=== PATIENT | female | born 1995 | race Caucasian/White ===

== ENCOUNTER 2019-05-16 17:09 | Emergency (ER) | payer MEDICAID, OTHER ==
[2019-05-16] MEDS ORDERED: DECADRON 10MG INJ. ONE (17:51)
[2019-05-16] MEDS ORDERED: Rocephin 1000 MG INJ ONE (17:52)
[2019-05-16] MEDS: Augmentin 875-125 Tablet PO ONE (17:54)
[2019-05-16] MEDS: Rocephin 1000 MG INJ IM ONE (17:55)
[2019-05-16] MEDS: DECADRON 10MG INJ. IM ONE (17:55)
--- NOTE | 2019-05-16 17:55 | ERPHSYRPT ---
- History of Present Illness Time Seen by Provider: 05/16/19 17:35 Source: patient Exam Limitations: no limitations Patient Subjective Stated Complaint: Pt states "I think I have strep. My throat is white and it hurts to swallow" Triage Nursing Assessment: Pt presented to the ed alert and oriented X 3, skin pwd Pt ambulates with an upright steady gait, able to speak in clear full sentences. Pt in no apparent respiratory distress. PT throat is red with white patches. Physician History: 24 years old female presented to the ER with chief complaint of sore throat for the last 2 days progressively worsening association with bilateral tonsillar enlargement and white spots. She's also having difficulty swallowing. Pain is morbid intensity, dull aching sharp in nature, aggravated with swallowing. He denies any difficulty eating. She is also having limited fever or chills. Denies any coughing a sick contact. No abdominal pain nausea or vomiting. Timing/Duration: gradual onset Severity: moderate ENT Location: throat Prearrival Treatment: over the counter meds Associated Symptoms: fever, difficulty swallowing Allergies/Adverse Reactions: morphine Allergy (Unknown, Verified 05/16/19 17:24) unknown Home Medications: Oxybutynin [Oxytrol] 1 each TD DAILY 05/16/19 [History] Sulfamethoxazole/Trimethoprim [Bactrim Ds Tablet] 1 each PO DAILY 05/16/19 [ History] Hx Tetanus, Diphtheria Vaccination/Date Given: No Hx Influenza Vaccination/Date Given: No Hx Pneumococcal Vaccination/Date Given: No Immunizations Up to Date: Yes - Review of Systems Constitutional: Fever, Chills, Fatigue Eyes: No Symptoms Ears, Nose, & Throat: Nose Congestion, Throat Swelling Respiratory: No Symptoms Cardiac: No Symptoms Abdominal/Gastrointestinal: No Symptoms Musculoskeletal: No Symptoms Skin: No Symptoms Neurological: No Symptoms Psychological: No Symptoms - Past Medical History Neurological History: No Pertinent History Cardiac History: No Pertinent History Respiratory History: Asthma Endocrine Medical History: Hypothyroidism, Other Musculoskeletal History: Other Other Medical History: High liver levels - Past Surgical History Past Surgical History: Yes Other Surgical History: tubes in ears - Social History Smoking Status: Never smoker Exposure to second hand smoke: Yes Drug Use: none Patient Lives Alone: No - Female History Hx Last Menstrual Period: 04/10/2019 Hx Now: No - Nursing Vital Signs Nursing Vital Signs: Initial Vital Signs Temperature 100.1 F 05/16/19 17:18 Pulse Rate 113 H 05/16/19 17:18 Respiratory Rate 22 05/16/19 17:18 Blood Pressure 176/114 05/16/19 17:18 O2 Sat by Pulse Oximetry 94 L 05/16/19 17:18 Pain Scale Pain Intensity 9 - Physical Exam General Appearance: no apparent distress, alert Eye Exam: bilateral eye: normal inspection, PERRL, EOMI Ear Exam: bilateral ear: auricle normal, canal normal Nasal Exam: normal inspection Throat Exam: moist mucus membranes, pharynx swelling, pharynx tenderness, tonsillar exudate, tonsillar swelling, uvula swelling, No tongue swollen Neck Exam: lymphadenopathy (R), lymphadenopathy (L) Cardiovascular/Respiratory Exam: chest non-tender, normal breath sounds Abdominal Exam: non-tender, soft Neurologic Exam: alert, oriented x 3, cooperative Skin Exam: normal color, warm, dry SpO2 Interpretation: normal SpO2: 94 O2 Delivery: Room Air Ordered Tests: Medication Summary Discontinued Medications Generic Name Dose Route Start Last Admin Trade Name Brannon PRN Reason Stop Dose Admin Amoxicillin/Clavulanate Potassium 875 mg 05/16/19 17:49 05/16/19 17:54 Augmentin 875-125 Tablet PO 05/16/19 17:50 Not Given STAT ONE Ceftriaxone Sodium Confirm 05/16/19 17:52 Rocephin 1000 Mg Inj Administered 05/16/19 17:53 Dose 1,000 mg .ROUTE .STK-MED ONE Ceftriaxone Sodium 1,000 mg 05/16/19 17:54 05/16/19 17:55 Rocephin 1000 Mg Inj IM 05/16/19 17:55 1,000 mg STAT ONE Administration Dexamethasone Sodium Phosphate 10 mg 05/16/19 17:48 05/16/19 17:55 Decadron 10mg Inj. IM 05/16/19 17:49 10 mg STAT ONE Administration Dexamethasone Sodium Phosphate Confirm 05/16/19 17:51 Decadron 10mg Inj. Administered 05/16/19 17:52 Dose 10 mg .ROUTE .STK-MED ONE Lab/Rad Data: Laboratory Results 05/16/19 Range/Units Unknown Group A Strep Antibody POSITIVE (NEGATIVE) - Progress Progress: unchanged, improved Progress Note: 24 years old is evaluated for worsening sore throat and enlarged tonsils. She has bilaterally enlarged tonsils kissing each other with swollen uvula.. I have given her steroid shot in here along with antibiotic. I would continue with Augmentin to go home and shot course of steroid. At this point she does not have any airway compromise. Recommended taking Tylenol/ibuprofen as needed for outpatient followup with primary care for reevaluation. This this time symptoms are worsening needing to cut the etiology seems understanding. Stable for discharge. 05/16/19 18:42 Counseled pt/family regarding: lab results, diagnosis, need for follow-up - Departure Departure Disposition: Home Clinical Impression: Acute streptococcal pharyngitis Condition: Stable Critical Care Time: No Referrals: KENRICK BO [Primary Care Provider] - Follow Up with PCP/3 days Instructions: Strep Throat (DC) Additional Instructions: take Tylenol/ibuprofen as needed. Increase liquid intake. Continue antibiotics. Followup with primary care for reevaluation. Return to ER for difficulty breathing/worsening sore throat/pain/fever etc. Prescriptions: Amox Tr/Potass Clav. 875 mg [Augmentin 875-125 Tablet] 875 mg PO BID 10 Days #20 tablet Prednisone 10 mg [Deltasone 10 mg] 60 mg PO DAILY #30 tablet
[2019-05-16 18:52] VITALS: BP 142/104; PULSE 99; O2SAT 98
== END 2019-05-16 19:00 | disposition home or self-care (01) ==
LOC: ED 17:09
DX: J02.0 Streptococcal pharyngitis (principal)
CPT/HCPCS: 87651; 96372; 99284; J0696; J1100

== ENCOUNTER 2021-07-16 23:04 | Emergency (ER) | payer OTHER ==
[2021-07-17] MEDS ORDERED: Zofran 4 MG/2 ML VIAL IV ONE (00:17)
[2021-07-17] MEDS ORDERED: Sodium Chloride 0.9% 1000 ML 1,000 ML IV STA (00:17)
[2021-07-17] MEDS ORDERED: Hydromorphone 1 mg/ml Injection IV ONE (00:17)
--- NOTE | 2021-07-17 00:21 | ERPHSYRPT ---
- History of Present Illness Time Seen by Provider: 07/16/21 23:08 Historian: patient Exam Limitations: no limitations Physician History: 26 years old female presented in the ER with chief complaint of left flank pain since yesterday afternoon, moderate to severe intensity, sharp nature, continuous, radiating to left groin, aggravated with palpation and movements and denies any associated urinary symptoms. Has nausea but no vomiting. Reports having similar symptoms in the past with UTI. No history of kidney stones. Timing/Duration: yesterday, constant, gradual onset, worse Activities at Onset: rest Quality: sharpness Abdominal Pain Onset Location: flank Pain Radiation: groin Severity of Pain-Max: severe Severity of Pain-Current: moderate Modifying Factors: Worsens With: movement, palpation, urinating Associated Symptoms: nausea Previous symptoms: same symptoms as today Allergies/Adverse Reactions: morphine Allergy (Unknown, Verified 07/17/21 01:02) unknown Home Medications: Atorvastatin Calcium [Lipitor] 10 mg PO DAILY 07/17/21 [History] Bupropion HCl [Wellbutrin Xl] 150 mg PO BID 07/17/21 [History] Lisinopril 10 mg [Zestril 10 MG] 10 mg PO DAILY 07/17/21 [History] Norgestimate-Ethinyl Estradiol [Sprintec 28 Day Tablet] 1 tab PO DAILY 07/17/21 [History] Hx Tetanus, Diphtheria Vaccination/Date Given: No Hx Influenza Vaccination/Date Given: No Hx Pneumococcal Vaccination/Date Given: No - Review of Systems Constitutional: No Symptoms Eyes: No Symptoms Ears, Nose, & Throat: No Symptoms Respiratory: No Symptoms Cardiac: No Symptoms Abdominal/Gastrointestinal: Abdominal Pain, Nausea Genitourinary Symptoms: No Symptoms Musculoskeletal: No Symptoms Skin: No Symptoms Neurological: No Symptoms Psychological: No Symptoms Endocrine: No Symptoms Hematologic/Lymphatic: No Symptoms Immunological/Allergic: No Symptoms - Past Medical History Neurological History: No Pertinent History Cardiac History: No Pertinent History Respiratory History: Asthma Endocrine Medical History: Hypothyroidism, Other Musculoskeletal History: Other Other Medical History: High liver levels - Past Surgical History Past Surgical History: Yes Other Surgical History: tubes in ears - Social History Smoking Status: Never smoker Exposure to second hand smoke: Yes Drug Use: none Patient Lives Alone: No - Nursing Vital Signs Nursing Vital Signs: Initial Vital Signs Temperature 98 F 07/16/21 23:04 Pulse Rate 84 12/08/21 23:04 Respiratory Rate 20 07/16/21 23:04 Blood Pressure 170/127 07/16/21 23:04 O2 Sat by Pulse Oximetry 96 07/16/21 23:04 Pain Scale Pain Intensity 0 - Physical Exam General Appearance: no apparent distress, alert Eye Exam: PERRL/EOMI, eyes nml inspection Ears, Nose, Throat Exam: normal ENT inspection, pharynx normal Neck Exam: normal inspection, non-tender, supple, full range of motion Respiratory Exam: normal breath sounds, lungs clear Cardiovascular Exam: regular rate/rhythm, normal heart sounds Gastrointestinal/Abdomen Exam: soft, normal bowel sounds, tenderness Back Exam: normal inspection (Left flank/left lower quadrant), normal range of motion, CVA tenderness (Left) Extremity Exam: normal inspection, normal range of motion Neurologic Exam: alert, oriented x 3, cooperative Skin Exam: normal color SpO2 Interpretation: normal SpO2: 96 O2 Delivery: Room Air Ordered Tests: Medication Summary Discontinued Medications Generic Name Dose Route Start Last Admin Trade Name Brannon PRN Reason Stop Dose Admin Ciprofloxacin 500 mg 07/17/21 10:00 07/17/21 02:46 Ciprofloxacin 500 Mg Tablet PO 08/16/21 09:59 500 mg BID [place] Administration Ciprofloxacin Confirm 07/17/21 02:44 Ciprofloxacin 500 Mg Tablet Administered 07/17/21 02:45 Dose 500 mg .ROUTE .STK-MED ONE Hydromorphone HCl 1 mg 07/17/21 00:17 07/17/21 01:17 Hydromorphone 1 Mg/1ml Inj 1 Mg/Ml Syringe IV 07/17/21 00:18 1 mg STAT ONE Administration Hydromorphone HCl Confirm 07/17/21 01:13 Hydromorphone 1 Mg/1ml Inj 1 Mg/Ml Syringe Administered 07/17/21 01:14 Dose 1 mg .ROUTE .STK-MED ONE Sodium Chloride 1,000 mls @ 999 mls/hr 07/17/21 00:17 07/17/21 01:11 Sodium Chloride 0.9% 1000 Ml IV 07/17/21 01:17 Not Given .Q1H1M STA Ondansetron HCl 4 mg 07/17/21 00:17 07/17/21 01:11 Ondansetron Hcl 4 Mg/2 Ml Vial IV 07/17/21 00:18 Not Given STAT ONE Tamsulosin HCl 0.4 mg 07/17/21 10:00 07/17/21 02:46 Tamsulosin Hcl 0.4 Mg Cap PO 08/16/21 09:59 0.4 mg DAILY [place] Administration Tamsulosin HCl Confirm 07/17/21 02:44 Tamsulosin Hcl 0.4 Mg Cap Administered 07/17/21 02:45 Dose 0.4 mg .ROUTE .STK-MED ONE Lab/Rad Data: Laboratory Result Diagrams 07/17/21 01:00 07/17/21 01:00 Laboratory Results 07/17/21 07/17/21 07/17/21 Range/Units 01:00 01:00 00:26 WBC 12.5 H (4.0-10.5) K/mm3 RBC 4.67 (4.1-5.4) M/mm3 Hgb 11.5 L (12.0-16.0) gm/dl Hct 37.3 (35-47) % MCV 79.9 (78-100) fl MCH 24.6 L (26-32) pg MCHC 30.8 L (32-36) g/dl RDW 16.6 H (11.5-14.0) % Plt Count 346 (150-450) K/mm3 MPV 10.6 (7.5-11.0) fl Gran % 74.9 H (36.0-66.0) % Eos # (Auto) 0.10 (0-0.5) Absolute Lymphs (auto) 2.26 (1.0-4.6) Absolute Monos (auto) 0.75 (0.0-1.3) Lymphocytes % 18.1 L (24.0-44.0) % Monocytes % 6.0 (0.0-12.0) % Eosinophils % 0.8 (0.00-5.0) % Basophils % 0.2 (0.0-0.4) % Absolute Granulocytes 9.34 H (1.4-6.9) Basophils # 0.02 (0-0.4) Sodium 139 (137-145) mmol/L Potassium 3.8 (3.5-5.1) mmol/L Chloride 106 (98-107) mmol/L Carbon Dioxide 24 (22-30) mmol/L Anion Gap 12.3 (5-15) MEQ/L BUN 24 H (7-17) mg/dL Creatinine 1.07 H (0.52-1.04) mg/dL Estimated GFR > 60.0 ML/MIN Glucose 99 (74-106) mg/dL Calcium 9.7 (8.4-10.2) mg/dL Total Bilirubin 0.30 (0.2-1.3) mg/dL AST 16 (14-36) U/L ALT 14 (0-35) U/L Alkaline Phosphatase 74 (38-126) U/L Serum Total Protein 8.0 (6.3-8.2) g/dL Albumin 4.6 (3.5-5.0) g/dL Lipase 95 (23-300) U/L Urine Color (YELLOW) Urine Appearance (CLEAR) Urine pH (5-6) Ur Specific [place] (1.005-1.025) Urine Protein (Negative) Urine Ketones (NEGATIVE) Urine Blood (0-5) Jay/ul Urine Nitrite (NEGATIVE) Urine Bilirubin (NEGATIVE) Urine Urobilinogen (0-1) mg/dL Ur Leukocyte Esterase (NEGATIVE) Urine WBC (Auto) (0-5) /HPF Urine RBC (Auto) (0-2) /HPF U Epithel Cells (Auto) (FEW) /HPF Urine Bacteria (Auto) (NEGATIVE) /HPF Urine Culture Reflexed (NO) Urine Glucose (NEGATIVE) mg/dL Urine HCG, Qual NEGATIVE (Negative) 07/17/21 Range/Units 00:26 WBC (4.0-10.5) K/mm3 RBC (4.1-5.4) M/mm3 Hgb (12.0-16.0) gm/dl Hct (35-47) % MCV (78-100) fl MCH (26-32) pg MCHC (32-36) g/dl RDW (11.5-14.0) % Plt Count (150-450) K/mm3 MPV (7.5-11.0) fl Gran % (36.0-66.0) % Eos # (Auto) (0-0.5) Absolute Lymphs (auto) (1.0-4.6) Absolute Monos (auto) (0.0-1.3) Lymphocytes % (24.0-44.0) % Monocytes % (0.0-12.0) % Eosinophils % (0.00-5.0) % Basophils % (0.0-0.4) % Absolute Granulocytes (1.4-6.9) Basophils # (0-0.4) Sodium (137-145) mmol/L Potassium (3.5-5.1) mmol/L Chloride (98-107) mmol/L Carbon Dioxide (22-30) mmol/L Anion Gap (5-15) MEQ/L BUN (7-17) mg/dL Creatinine (0.52-1.04) mg/dL Estimated GFR ML/MIN Glucose (74-106) mg/dL Calcium (8.4-10.2) mg/dL Total Bilirubin (0.2-1.3) mg/dL AST (14-36) U/L ALT (0-35) U/L Alkaline Phosphatase (38-126) U/L Serum Total Protein (6.3-8.2) g/dL Albumin (3.5-5.0) g/dL Lipase (23-300) U/L Urine Color STRAW (YELLOW) Urine Appearance SLIGHTLY CLOUDY (CLEAR) Urine pH 5.0 (5-6) Ur Specific [place] 1.013 (1.005-1.025) Urine Protein 100 (Negative) Urine Ketones NEGATIVE (NEGATIVE) Urine Blood SMALL (0-5) Jay/ul Urine Nitrite NEGATIVE (NEGATIVE) Urine Bilirubin NEGATIVE (NEGATIVE) Urine Urobilinogen NEGATIVE (0-1) mg/dL Ur Leukocyte Esterase NEGATIVE (NEGATIVE) Urine WBC (Auto) 0-2 (0-5) /HPF Urine RBC (Auto) 6-10 (0-2) /HPF U Epithel Cells (Auto) NONE (FEW) /HPF Urine Bacteria (Auto) NONE (NEGATIVE) /HPF Urine Culture Reflexed YES (NO) Urine Glucose NEGATIVE (NEGATIVE) mg/dL Urine HCG, Qual (Negative) - Progress Progress: improved Progress Note: She is given symptomatic treatment for pain along with fluid bolus, feeling much improved on reevaluation. CT showed left-sided stone without obvious obstruction and mild hydroureteronephrosis per preliminary report. I have given her Flomax and prophylactic antibiotics, outpatient urology follow-up recommended. Counseled pt/family regarding: lab results, diagnosis, need for follow-up, rad results - Departure Departure Disposition: Home Clinical Impression: Ureterolithiasis Condition: Stable Critical Care Time: No Referrals: KENRICK BO NP [Primary Care Provider] - Follow up/PCP as directed (1-2 days for reevaluation) DEON PIEDRA [COURTESY STAFF] - Follow up/PCP as directed (Call in the morning for appointment) Instructions: Kidney Stones (DC) Additional Instructions: Take Tylenol/ibuprofen as needed for pain. Follow-up with urology for reevaluation. Return to ER for worsening pain or if develop fever chills intractable vomiting etc. Prescriptions: Hydrocodone/Acetaminophen [Hydrocodone-Acetamin 7.5-325] 1 each PO Q6HPRN PRN 3 Days #12 tablet MDD 4 PRN Reason: Pain Ciprofloxacin [Cipro 500 MG] 500 mg PO BID #14 tablet Tamsulosin HCl 0.4 mg [Flomax 0.4 MG] 0.4 mg PO DAILY #30 cap
[2021-07-17] MEDS ORDERED: Hydromorphone 1 mg/ml Injection ONE (01:13)
[2021-07-17 01:19] LABS: Absolute Neutrophil Ct (ANC) 9.34 (1.4-6.9); BASOPHIL % 0.2 % (0.0-0.4); Basophil (Absolute #) 0.02 (0-0.4); Eosinophil % 0.8 % (0.00-5.0); Hematocrit 37.3 % (35-47); Hemoglobin 11.5 gm/dl (12.0-16.0); Lymphocyte (Absolute #) 2.26 (1.0-4.6); Lymphocytes % 18.1 % (24.0-44.0); Mean Cell Volume 79.9 fl (78-100); Mean Corpuscular Hemoglobin 24.6 pg (26-32); Mean Corpuscular Hgb Concent. 30.8 g/dl (32-36); Mean Platelet Volume 10.6 fl (7.5-11.0); Monocyte (Absolute #) 0.75 (0.0-1.3); Neutrophil % 74.9 % (36.0-66.0); Platelet Count 346 K/mm3 (150-450); Red Blood Count 4.67 M/mm3 (4.1-5.4); Red Cell Distribution Width 16.6 % (11.5-14.0); White Blood Count 12.5 K/mm3 (4.0-10.5)
[2021-07-17 01:23] LABS: Appearance SLIGHTLY CLOUDY (CLEAR); Bilirubin NEGATIVE (NEGATIVE); Blood SMALL Ery/ul (0-5); Glucose NEGATIVE (NEGATIVE); Ketones NEGATIVE (NEGATIVE); Leukocyte Esterase NEGATIVE (NEGATIVE); Nitrite NEGATIVE (NEGATIVE); Protein,Urine Dip 100 (Negative); Specific Gravity 1.013 (1.005-1.025); Urobilinogen NEGATIVE mg/dL (0-1); WBC 0-2 /HPF (0-5)
[2021-07-17 01:29] LABS: ALBUMIN 4.6 g/dL (3.5-5.0); ALKALINE PHOSPHATASE 74 U/L (38-126); ANION GAP 12.3 MEQ/L (5-15); BLOOD UREA NITROGEN 24 mg/dL (7-17); CHLORIDE 106 mmol/L (98-107); Calcium 9.7 mg/dL (8.4-10.2); Carbon Dioxide 24 mmol/L (22-30); Creatinine 1 1.07 mg/dL (0.52-1.04); EST GLOMERULAR FILTRATION RATE > 60.0 ML/MIN; Glucose 99 mg/dL (74-106); LIPASE 95 U/L (23-300); Potassium 3.8 mmol/L (3.5-5.1); SGOT/AST 16 U/L (14-36); SGPT/ALT 14 U/L (0-35); SODIUM 139 mmol/L (137-145)
[2021-07-17] MEDS ORDERED: Cipro 500 MG ONE (02:44)
[2021-07-17] MEDS ORDERED: Flomax 0.4 MG ONE (02:44)
[2021-07-17 03:11] VITALS: BP 134/78; PULSE 72
--- NOTE | 2021-07-17 09:53 | XRAY ---
Indication: Left flank pain and nausea. Multiple contiguous axial images obtained through the abdomen and pelvis without contrast using renal stone protocol. Comparison: January 14, 2015. Lung bases are clear of infiltrate and effusion. Heart is not enlarged. Proximal left ureter demonstrates new 5-6 mm calculus, approximately L2-L3 interspace level. Moderate left hydronephrosis and mild left renal edema consistent with high-grade obstructive uropathy. No free fluid/air. Stomach is again distended with food/fluid. Noncontrasted stomach and bowel loops nonobstructed with normal appendix. Remaining liver, gallbladder, pancreas, spleen, adrenal glands, kidneys, ureters, bladder, uterus, and aorta are unremarkable for noncontrast exam. Osseous structures intact. Impression: 1. New 5-6 mm proximal left ureteral calculus producing high-grade obstruction. 2. Remaining CT abdomen/pelvis without contrast exam is negative. Comment: Preliminary interpretation made by C. No critical discrepancy.
[2021-07-17] MEDS ORDERED: Cipro 500 MG PO SCH (10:00)
[2021-07-17] MEDS ORDERED: Flomax 0.4 MG PO SCH (10:00)
[2021-07-19 20:44] VITALS: O2SAT 96
== END 2021-07-17 03:11 | disposition home or self-care (01) ==
LOC: ED 23:04
DX: N20.1 Calculus of ureter (principal); R11.0 Nausea; Z79.891 Long term (current) use of opiate analgesic
CPT/HCPCS: 36415; 74176; 80053; 81001; 83690; 84703; 85025; 87086; 99284; J1170; A9270-GY

== ENCOUNTER 2023-01-25 11:19 | Emergency (ER) | payer OTHER ==
[2023-01-25] MEDS ORDERED: Sodium Chloride 0.9% 1000 ML 1,000 ML IV STA (11:34)
[2023-01-25] MEDS ORDERED: Sodium Chloride 0.9% 1000 ML 1,000 ML ONE (11:42)
[2023-01-25 11:45] LABS: VBG BASE EXCESS 0.2 (-2.0-2.0); VBG CARBOXYHEMOGLOBIN 3.7 % T HGB (0.0-6.9); VBG HCO3- 20.2 meq/L (22-28); VBG HEMOGLOBIN 14.7; VBG O2 SATURATION 70.9 (95-100); VBG POTASSIUM 3.6 (3.5-5.1)
[2023-01-25 11:46] LABS: VBG pH 7.57 (7.32-7.42)
--- NOTE | 2023-01-25 11:53 | XRAY ---
Indication: Short of breath. Comparison: August 28, 2016 Portable chest continues to demonstrate normal heart, lungs, and bony thorax.
[2023-01-25 11:57] LABS: Absolute Neutrophil Ct (ANC) 4.88 x10^3/uL (1.4-6.9); BASOPHIL % 0.4 % (0.0-0.4); Basophil (Absolute #) 0.03 x10^3/uL (0-0.4); Eosinophil % 0.4 % (0.00-5.0); Eosinophil (Absolute #) 0.03 x10^3/uL (0-0.5); Hematocrit 42.1 % (35-47); Hemoglobin 13.8 g/dL (12.0-16.0); IMMATURE GRAN # 0.02 x10^3u/L (0.00-0.03); IMMATURE GRAN % 0.3 % (0.00-0.4); Lymphocyte (Absolute #) 2.12 x10^3/uL (1.0-4.6); Lymphocytes % 28.3 % (24.0-44.0); Mean Cell Volume 81.4 fL (78-100); Mean Corpuscular Hemoglobin 26.7 pg (26-32); Mean Corpuscular Hgb Concent. 32.8 g/dL (32-36); Mean Platelet Volume 11.8 fL (7.5-11.0); Monocytes % 5.3 % (0.0-12.0); Neutrophil % 65.3 % (36.0-66.0); Platelet Count 255 x10^3/uL (150-450); Red Blood Count 5.17 x10^6/uL (4.1-5.4); Red Cell Distribution Width 14.3 % (11.5-14.0); White Blood Count 7.5 x10^3/uL (4.0-10.5)
[2023-01-25] MEDS ORDERED: Ativan 2 MG/1 ML VIAL IV ONE (11:59)
[2023-01-25] MEDS ORDERED: Ativan 2 MG/1 ML VIAL ONE (12:01)
[2023-01-25 12:20] LABS: ALBUMIN 4.7 g/dL (3.5-5.0); ALKALINE PHOSPHATASE 58 U/L (38-126); ANION GAP 17.4 MEQ/L (5-15); BLOOD UREA NITROGEN 15 mg/dL (7-17); CHLORIDE 108 mmol/L (98-107); Carbon Dioxide 19 mmol/L (22-30); Creatinine 1 0.85 mg/dL (0.52-1.04); EST GLOMERULAR FILTRATION RATE > 60.0 ML/MIN; Glucose 93 mg/dL (74-106); MAGNESIUM 2.2 mg/dL (1.6-2.3); NT PRO BNPII 25.5 pg/mL (<300); Potassium 3.5 mmol/L (3.5-5.1); SGOT/AST 27 U/L (14-36); SGPT/ALT 16 U/L (0-35); SODIUM 141 mmol/L (137-145); Total Protein 8.2 g/dL (6.3-8.2)
[2023-01-25 12:31] VITALS: O2SAT 97
[2023-01-25 12:33] LABS: INFLUENZA A NEGATIVE (NEGATIVE); INFLUENZA B NEGATIVE (NEGATIVE); RESPIRATORY SYNCTIAL VIRUS NEGATIVE (NEGATIVE); SARS-CoV-2 Xpert Express NEGATIVE (NEGATIVE)
--- NOTE | 2023-01-25 12:42 | ERPHSYRPT ---
- History of Present Illness Time Seen by Provider: 01/25/23 11:35 Source: patient, family Exam Limitations: no limitations Patient Subjective Stated Complaint: C/O SOB that started on and has become progressively worse. Denies any pain at this time but states she has been having some intermittent chest pain since Wednesday. Triage Nursing Assessment: Patient ambulated back to ER. She is SOB; labored. Diaphoretic. Skin tone normal for patient. She is alert and oriented. JEAN BAPTISTE WNL. No cough. Lungs clear. Physician History: Patient is a 27-year-old white female who presents with a complaint of shortness of breath. Is been going on for several days but is getting much worse. She had asthma as a child but no reported illnesses respiratory crow as an adult. She does have problems with anxiety. She has had no cough no fever chills sweats she has some numbness in the left hand and her entire chest seems to hurt. Timing/Duration: day(s) (5) Activities at Onset: none Severity of Dyspnea-Max: moderate Severity of Dyspnea-Current: none Possible Cause: no prior episodes Modifying Factors: Improves With: nothing Associated Symptoms: anxiety, chest pain/discomfort, tingling hands Allergies/Adverse Reactions: morphine Allergy (Unknown, Verified 01/25/23 11:21) unknown Home Medications: Lisinopril 10 mg [Zestril 10 MG] 20 mg PO DAILY 07/17/21 [History] Buspirone HCl 5 mg [Buspar 5 mg] 10 mg PO BID 01/25/23 [History] Phentermine HCl 1 tab PO DAILY 01/25/23 [History] Hx Tetanus, Diphtheria Vaccination/Date Given: Yes Hx Influenza Vaccination/Date Given: No Hx Pneumococcal Vaccination/Date Given: No Immunizations Up to Date: Yes Travel Risk - International Travel Have you traveled outside of the country in past 3 weeks: No - Coronavirus Screening Are you exhibiting any of the following symptoms?: Yes Symptoms: Shortness of Breath Close contact with a COVID-19 positive Pt in past 14-21 Days: No - Vaccine Status Have you recieved a Covid-19 vaccination: Yes 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[employer] - Vaccination Dates Date of 2cond Vaccination (if applicable): Didn't get - Review of Systems Constitutional: No Fever, No Chills Eyes: No Symptoms Ears, Nose, & Throat: No Symptoms Respiratory: Dyspnea, No Cough Cardiac: No Chest Pain, No Edema, No Syncope Abdominal/Gastrointestinal: No Abdominal Pain, No Nausea, No Vomiting, No Diarrhea Genitourinary Symptoms: No Dysuria Musculoskeletal: No Back Pain, No Neck Pain Skin: No Rash Neurological: No Dizziness, No Focal Weakness, No Sensory Changes Psychological: No Symptoms Endocrine: No Symptoms All Other Systems: Reviewed and Negative - Past Medical History Pertinent Past Medical History: Yes Neurological History: No Pertinent History ENT History: Other Cardiac History: No Pertinent History Respiratory History: Asthma Endocrine Medical History: Hypothyroidism, Other Musculoskeletal History: Other GI Medical History: Other History: No Pertinent History Psycho-Social History: Anxiety, Depression Female Reproductive Disorders: No Pertinent History Other Medical History: High liver levels - Past Surgical History Past Surgical History: Yes Neuro Surgical History: No Pertinent History Cardiac: No Pertinent History Respiratory: No Pertinent History Gastrointestinal: No Pertinent History Genitourinary: No Pertinent History Musculoskeletal: No Pertinent History Female Surgical History: No Pertinent History Other Surgical History: tubes in ears - Social History Smoking Status: Never smoker Exposure to second hand smoke: Yes Drug Use: none Patient Lives Alone: No - Female History Hx Last Menstrual Period: 12/23/22 Hx Now: No - Nursing Vital Signs Nursing Vital Signs: Initial Vital Signs Temperature 97.7 F 01/25/23 11:24 Pulse Rate 92 H 01/25/23 11:24 Respiratory Rate 22 01/25/23 11:24 Blood Pressure 157/111 01/25/23 11:24 O2 Sat by Pulse Oximetry 100 01/25/23 11:24 Pain Scale Pain Intensity 0 - Physical Exam General Appearance: mild distress Eye Exam: PERRL/EOMI Ears, Nose, Throat Exam: hearing grossly normal, normal ENT inspection Neck Exam: normal inspection, supple Respiratory Exam: normal breath sounds, lungs clear, other (Hyperventilation) Cardiovascular/Chest Exam: normal heart sounds, regular rate/rhythm Abdominal/Gastrointestinal Exam: soft, No tenderness, No distention, No mass Extremity Exam: non-tender, normal range of motion, normal inspection, no calf tenderness, no pedal edema Neurologic Exam: alert, oriented x 3, cooperative, veterinary anatomist II-XII nml as tested, sensation nml, No motor deficits Skin Exam: normal color, warm, No dry SpO2 Interpretation: normal SpO2: 97 O2 Delivery: Room Air - Course Nursing assessment & vital signs reviewed: Yes EKG Interpreted by Me: RATE (90), Sinus Rhythm, NORMAL AXIS, NORMAL INTERVALS, NORMAL QRS, NORMAL ST-T - Radiology Exams Chest X-ray Interpretation: Reviewed by me Ordered Tests: Active Orders 24 hr Category Date Time Status EKG-ER Only STAT Care 01/25/23 11:34 Active CHEST 1 VIEW (PORTABLE) Stat Exams 01/25/23 11:35 Completed CBC W DIFF Stat Lab 01/25/23 11:56 Completed CMP Stat Lab 01/25/23 11:56 Completed D-DIMER QUANTITATIVE Stat Lab 01/25/23 11:56 Completed Lactic Acid Stat Lab 01/25/23 11:34 Completed MAGNESIUM Stat Lab 01/25/23 11:56 Completed NT PRO BNPII Stat Lab 01/25/23 11:56 Completed TROPONIN Q4H Lab 01/25/23 11:56 Completed TROPONIN Q4H Lab 01/25/23 15:45 Ordered TROPONIN Q4H Lab 01/25/23 19:45 Ordered UA W/RFX UR CULTURE Stat Lab 01/25/23 11:38 Ordered Urine Triage Profile Stat Lab 01/25/23 Ordered VENOUS BLOOD GAS Stat Lab 01/25/23 11:35 Completed Medication Summary Discontinued Medications Generic Name Dose Route Start Last Admin Trade Name Kerwinq PRN Reason Stop Dose Admin Sodium Chloride 1,000 mls @ 999 mls/hr 01/25/23 11:34 01/25/23 11:43 Sodium Chloride 0.9% 1000 Ml IV 01/25/23 12:34 999 mls/hr .Q1H1M STA Administration Sodium Chloride Confirm 01/25/23 11:42 Sodium Chloride 0.9% 1000 Ml Administered 01/25/23 11:43 Dose 1,000 mls @ ud .ROUTE .STK-MED ONE Lorazepam 1 mg 01/25/23 11:59 01/25/23 12:02 Lorazepam 2 Mg/1 Ml 2 Mg Vial IV 01/25/23 12:00 1 mg STAT ONE Administration Lorazepam Confirm 01/25/23 12:01 Lorazepam 2 Mg/1 Ml 2 Mg Vial Administered 01/25/23 12:02 Dose 2 mg .ROUTE .STK-MED ONE Lab/Rad Data: Laboratory Result Diagrams 01/25/23 11:56 01/25/23 11:56 Laboratory Results 01/25/23 01/25/23 01/25/23 Range/Units Unknown 11:56 11:56 WBC (4.0-10.5) x10^3/uL RBC (4.1-5.4) x10^6/uL Hgb (12.0-16.0) g/dL Hct (35-47) % MCV (78-100) fL MCH (26-32) pg MCHC (32-36) g/dL RDW (11.5-14.0) % Plt Count (150-450) x10^3/uL MPV (7.5-11.0) fL Gran % (36.0-66.0) % Immature Gran % (Auto) (0.00-0.4) % Nucleat RBC Rel Count (0.00-0.1) % Eos # (Auto) (0-0.5) x10^3/uL Immature Gran # (Auto) (0.00-0.03) x10^3u/L Absolute Lymphs (auto) (1.0-4.6) x10^3/uL Absolute Monos (auto) (0.0-1.3) x10^3/uL Absolute Nucleated RBC (0.00-0.01) x10^3u/L Lymphocytes % (24.0-44.0) % Monocytes % (0.0-12.0) % Eosinophils % (0.00-5.0) % Basophils % (0.0-0.4) % Absolute Granulocytes (1.4-6.9) x10^3/uL Basophils # (0-0.4) x10^3/uL D-Dimer 0.44 (0.0-0.50) mg/L pO2/FiO2 Ratio % VBG pH (7.32-7.42) VBG pCO2 at Pat Temp (42-55) mm/Hg VBG pO2 at Pat Temp (25-40) mm/Hg VBG HCO3 (22-28) meq/L VBG O2 Sat (Ian) (95-100) VBG Base Excess (-2.0-2.0) VBG Hemoglobin VBG Carboxyhemoglobin (0.0-6.9) % T HGB POC Potassium (3.5-5.1) Sodium (137-145) mmol/L Potassium (3.5-5.1) mmol/L Chloride (98-107) mmol/L Carbon Dioxide (22-30) mmol/L Anion Gap (5-15) MEQ/L BUN (7-17) mg/dL Creatinine (0.52-1.04) mg/dL Estimated GFR ML/MIN Glucose (74-106) mg/dL Lactic Acid (0.4-2.0) Calcium (8.4-10.2) mg/dL Magnesium (1.6-2.3) mg/dL Total Bilirubin (0.2-1.3) mg/dL AST (14-36) U/L ALT (0-35) U/L Alkaline Phosphatase (38-126) U/L Troponin I < 0.012 (0.000-0.034) ng/mL NT-Pro-B Natriuret Pep (<300) pg/mL Serum Total Protein (6.3-8.2) g/dL Albumin (3.5-5.0) g/dL Influenza Type A Ag NEGATIVE (NEGATIVE) Influenza Type B Ag NEGATIVE (NEGATIVE) RSV (PCR) NEGATIVE (NEGATIVE) SARS-CoV-2 (PCR) NEGATIVE (NEGATIVE) 01/25/23 01/25/23 01/25/23 Range/Units 11:56 11:56 11:35 WBC 7.5 (4.0-10.5) x10^3/uL RBC 5.17 (4.1-5.4) x10^6/uL Hgb 13.8 (12.0-16.0) g/dL Hct 42.1 (35-47) % MCV 81.4 (78-100) fL MCH 26.7 (26-32) pg MCHC 32.8 (32-36) g/dL RDW 14.3 H (11.5-14.0) % Plt Count 255 (150-450) x10^3/uL MPV 11.8 H (7.5-11.0) fL Gran % 65.3 (36.0-66.0) % Immature Gran % (Auto) 0.3 (0.00-0.4) % Nucleat RBC Rel Count 0.0 (0.00-0.1) % Eos # (Auto) 0.03 (0-0.5) x10^3/uL Immature Gran # (Auto) 0.02 (0.00-0.03) x10^3u/L Absolute Lymphs (auto) 2.12 (1.0-4.6) x10^3/uL Absolute Monos (auto) 0.40 (0.0-1.3) x10^3/uL Absolute Nucleated RBC 0.00 (0.00-0.01) x10^3u/L Lymphocytes % 28.3 (24.0-44.0) % Monocytes % 5.3 (0.0-12.0) % Eosinophils % 0.4 (0.00-5.0) % Basophils % 0.4 (0.0-0.4) % Absolute Granulocytes 4.88 (1.4-6.9) x10^3/uL Basophils # 0.03 (0-0.4) x10^3/uL D-Dimer (0.0-0.50) mg/L pO2/FiO2 Ratio 21.0 % VBG pH 7.57 H* (7.32-7.42) VBG pCO2 at Pat Temp 22 L* (42-55) mm/Hg VBG pO2 at Pat Temp 34 (25-40) mm/Hg VBG HCO3 20.2 L (22-28) meq/L VBG O2 Sat (Ian) 70.9 L (95-100) VBG Base Excess 0.2 (-2.0-2.0) VBG Hemoglobin 14.7 VBG Carboxyhemoglobin 3.7 (0.0-6.9) % T HGB POC Potassium 3.6 (3.5-5.1) Sodium 141 (137-145) mmol/L Potassium 3.5 (3.5-5.1) mmol/L Chloride 108 H (98-107) mmol/L Carbon Dioxide 19 L (22-30) mmol/L Anion Gap 17.4 H (5-15) MEQ/L BUN 15 (7-17) mg/dL Creatinine 0.85 (0.52-1.04) mg/dL Estimated GFR > 60.0 ML/MIN Glucose 93 (74-106) mg/dL Lactic Acid (0.4-2.0) Calcium 10.0 (8.4-10.2) mg/dL Magnesium 2.2 (1.6-2.3) mg/dL Total Bilirubin 0.90 (0.2-1.3) mg/dL AST 27 (14-36) U/L ALT 16 (0-35) U/L Alkaline Phosphatase 58 (38-126) U/L Troponin I (0.000-0.034) ng/mL NT-Pro-B Natriuret Pep 25.5 (<300) pg/mL Serum Total Protein 8.2 (6.3-8.2) g/dL Albumin 4.7 (3.5-5.0) g/dL Influenza Type A Ag (NEGATIVE) Influenza Type B Ag (NEGATIVE) RSV (PCR) (NEGATIVE) SARS-CoV-2 (PCR) (NEGATIVE) 01/25/23 Range/Units 11:34 WBC (4.0-10.5) x10^3/uL RBC (4.1-5.4) x10^6/uL Hgb (12.0-16.0) g/dL Hct (35-47) % MCV (78-100) fL MCH (26-32) pg MCHC (32-36) g/dL RDW (11.5-14.0) % Plt Count (150-450) x10^3/uL MPV (7.5-11.0) fL Gran % (36.0-66.0) % Immature Gran % (Auto) (0.00-0.4) % Nucleat RBC Rel Count (0.00-0.1) % Eos # (Auto) (0-0.5) x10^3/uL Immature Gran # (Auto) (0.00-0.03) x10^3u/L Absolute Lymphs (auto) (1.0-4.6) x10^3/uL Absolute Monos (auto) (0.0-1.3) x10^3/uL Absolute Nucleated RBC (0.00-0.01) x10^3u/L Lymphocytes % (24.0-44.0) % Monocytes % (0.0-12.0) % Eosinophils % (0.00-5.0) % Basophils % (0.0-0.4) % Absolute Granulocytes (1.4-6.9) x10^3/uL Basophils # (0-0.4) x10^3/uL D-Dimer (0.0-0.50) mg/L pO2/FiO2 Ratio % VBG pH (7.32-7.42) VBG pCO2 at Pat Temp (42-55) mm/Hg VBG pO2 at Pat Temp (25-40) mm/Hg VBG HCO3 (22-28) meq/L VBG O2 Sat (Ian) (95-100) VBG Base Excess (-2.0-2.0) VBG Hemoglobin VBG Carboxyhemoglobin (0.0-6.9) % T HGB POC Potassium (3.5-5.1) Sodium (137-145) mmol/L Potassium (3.5-5.1) mmol/L Chloride (98-107) mmol/L Carbon Dioxide (22-30) mmol/L Anion Gap (5-15) MEQ/L BUN (7-17) mg/dL Creatinine (0.52-1.04) mg/dL Estimated GFR ML/MIN Glucose (74-106) mg/dL Lactic Acid 1.3 (0.4-2.0) Calcium (8.4-10.2) mg/dL Magnesium (1.6-2.3) mg/dL Total Bilirubin (0.2-1.3) mg/dL AST (14-36) U/L ALT (0-35) U/L Alkaline Phosphatase (38-126) U/L Troponin I (0.000-0.034) ng/mL NT-Pro-B Natriuret Pep (<300) pg/mL Serum Total Protein (6.3-8.2) g/dL Albumin (3.5-5.0) g/dL Influenza Type A Ag (NEGATIVE) Influenza Type B Ag (NEGATIVE) RSV (PCR) (NEGATIVE) SARS-CoV-2 (PCR) (NEGATIVE) - Progress Progress: improved Air Movement: good Blood Culture(s) Obtained: No Antibiotics given: No Medical Desision Making - Independent Historian Additional History obtained from: Mother - Diagnostic Testing Diagnostic test were ordered, analyzed, and reviewed by me: Yes Radiological Interpretation: Reviewed by me - Risk of complications Low Risk: Low risk of morbidity from additional dx testing or treatment - Departure Departure Disposition: Home Clinical Impression: Anxiety Condition: Stable Critical Care Time: No Referrals: KENRICK BO NP [Primary Care Provider] - Follow up/PCP as directed Instructions: Generalized anxiety disorder, Anxiety, Adult (DC) Prescriptions: Lorazepam 1 mg [Ativan 1 MG] 1 mg PO Q8H PRN PRN #8 tablet PRN Reason: Anxiety
[2023-01-25 12:53] VITALS: BP 177/104; PULSE 73
[2023-01-25 13:04] LABS: Appearance Clear (Clear); Bacteria Moderate /HPF (None Seen); Bilirubin Negative (Negative); Blood Negative (Negative); Epithelial Cells Moderate /HPF (None Seen); Glucose, Urine Negative (Negative); Ketones 40 (Negative); Leukocyte Esterase Small (Negative); Nitrite Negative (Negative); Ph 7.5 (4.6-8.0); Protein,Urine Dip Negative (Negative); Specific Gravity 1.015 (1.005-1.030)
[2023-01-25 13:05] LABS: ADD URINE CULTURE? YES (NO); Amphetamine,Urine NEGATIVE (NEGATIVE); Barbiturate,Urine NEGATIVE (NEGATIVE); Benzodiazepine,Urine NEGATIVE (NEGATIVE); Cocaine,Urine NEGATIVE (NEGATIVE); Hyaline Casts None Seen /LPF (0-2); Methadone,Urine NEGATIVE (NEGATIVE); Opiate,Urine NEGATIVE (NEGATIVE); PCP,Urine NEGATIVE (NEGATIVE); THC,Urine NEGATIVE (NEGATIVE)
== END 2023-01-25 13:03 | disposition home or self-care (01) ==
LOC: ED 11:19
DX: F41.9 Anxiety disorder, unspecified (principal); R06.02 Shortness of breath; R07.9 Chest pain, unspecified; Z79.899 Other long term (current) drug therapy; Z28.311 Partially vaccinated for COVID-19
CPT/HCPCS: 0241U; 36000; 36415; 71045; 80053; 80307; 81001; 82805; 83605; 83735; 83880; 84484; 85025; 85379; 87086; 93005; 96360; 96374; 99284; J2060